=== PATIENT | male | born 2000 | race Caucasian/White ===

== ENCOUNTER → 2021-07-14 | Outpatient (CLI) | payer SELFPAY ==
--- NOTE | 2021-07-14 | PAPI_PTH ---
PATIENT: ESAU APARICIO LOC: [facility] U#:[id number] AGE/SX: 21/M ROOM: RE07/14/[address]: Dr. Musa Ayala MD : [id number] BED: DIS: 07/14/2021 SPEC #: [id number] RECD: 07/14/21 12:13 STATUS: MYRANDA RELaron #: [id number] RAEANN: 07/14/21 00:[address]: Musa Ayala DEPT: SURGICAL PATHOLOGY RECD BY: Yuly Gore ENTERED: 07/14/21 13:08 SP TYPE: PAPILLOMA OTHR DR: Dr. Shani Burk MD Tissues: Skin, NOS Procedures: Surgery Specimen Level IV HEADER OPERATION: Excision oral papilloma PRE-OP DIAGNOSIS: Oral papilloma TISSUE SUBMITTED: Oral papilloma MICROSCOPIC DIAGNOSIS Oral papilloma, excision: Squamous papilloma. EMEKA:skyler 07/15/2021 MICROSCOPIC DESCRIPTION Slides are reviewed. GROSS DESCRIPTION Received in fixative is one container labeled with the patient's name and designated papilloma. The specimen consists of a fragment of mills-pink soft tissue measuring 0.2 x 0.2 x 0.1 cm. The specimen is totally submitted in one cassette. / SJ:skyler 07/14/21 TC:1 CPT: 01571
== END | disposition home or self-care (01) ==
LOC: LABSPEC 12:27
PROVIDERS: PCP Pediatrics; Referring Provider Otolaryngology; Visit Provider Otolaryngology
DX: D10.30 Benign neoplasm of unspecified part of mouth (principal)
CPT/HCPCS: 88305